=== PATIENT | female | born 1950 | race Two or more races ===

== ENCOUNTER → 2020-09-05 | Outpatient (CLI) | payer MEDICARE, OTHER ==
--- NOTE | 2020-09-05 15:02 | MR ---
EXAMINATION TYPE: MR lumbar spine wo con DATE OF EXAM: 09/05/2020 COMPARISON: 04/22/2018 HISTORY: Low back pain that goes down legs for 2 months, neck pain that goes down arms with numbness for 2-3 years. TECHNIQUE: Multiplanar, multisequence images of the lumbar spine were acquired. L1-L2: Normal disc appearance without desiccation. No herniation, protrusion or disc bulging. No ca nal stenosis is present. Foramina are patent bilaterally. L2-L3: Normal disc appearance without desiccation. No herniation, protrusion or disc bulging. No ca nal stenosis is present. Foramina are patent bilaterally. L3-L4: There is a disc bulge with mild bilateral facet arthropathy without sequelae, unchanged. L4-L5: There is a disc bulge with moderate bilateral facet arthropathy with mild bilateral neural for aminal narrowing, unchanged. L5-S1: There is a disc bulge with moderate bilateral facet arthropathy without sequelae. Lumbar segments are intact. No paraspinal masses are identified. Conus medullaris has a normal appe arance. IMPRESSION: Lower lumbar disc disease and osteoarthritic changes appear similar to the prior examination.
== END | disposition home or self-care (01) ==
LOC: RADMRIMAIN 13:07
PROVIDERS: ATTEND Orthopaedic Surgery
DX: M51.36 Other intervertebral disc degeneration, lumbar region (principal)
CPT/HCPCS: 72148

== ENCOUNTER 2020-12-03 14:35 | Emergency (ER) | payer MEDICARE, OTHER ==
[2020-12-03 15:15] VITALS: BP 133/81; PULSE 86; RESP 18; TEMP 98.6
[2020-12-03] MEDS ORDERED: DIPH,PERTUS(ACELL)TETVAC-LF 0.5 ML VIAL IM ONE (15:24)
--- NOTE | 2020-12-03 16:18 | XR ---
EXAMINATION TYPE: XR finger RT DATE OF EXAM: 12/03/2020 COMPARISON: NONE HISTORY: Pain TECHNIQUE: Three views are submitted. FINDINGS: The osseous structures are intact. The joint spaces are preserved and there is no acute fracture or dislocation. IMPRESSION: 1. No definite acute fracture or dislocation if symptoms persist, follow-up study in 7 to 10 days wo uld be suggested
[2020-12-03 16:27] LABS: Anisocytosis Slight; Basophils % (A) 0 %; Eosinophils # (A) 0.1 k/uL (0-0.7); Eosinophils % (A) 1 %; HCT 41.6 % (34.0-46.0); HGB 14.3 gm/dL (11.4-16.0); Lymphocytes # (A) 1.5 k/uL (1.0-4.8); Lymphocytes % (A) 18 %; MCH 31.7 pg (25.0-35.0); MCHC 34.4 g/dL (31.0-37.0); MCV 92.1 fL (80.0-100.0); Mean Platelet Volume 7.4; Monocytes # (A) 0.7 k/uL (0-1.0); Monocytes % (A) 9 %; Neutrophils # (A) 5.9 k/uL (1.3-7.7); Neutrophils % (A) 71 %; Platelet Count 339 k/uL (150-450); RBC 4.51 m/uL (3.80-5.40); RDW 16.7 % (11.5-15.5); WBC 8.2 k/uL (3.8-10.6)
--- NOTE | 2020-12-03 18:20 | ED ---
Extremity Problem HPI - General Chief complaint: Extremity Problem,Nontraumatic Stated complaint: R thumb injury Time Seen by Provider: 12/03/20 15:12 Source: patient, RN notes reviewed Mode of arrival: ambulatory Limitations: no limitations - History of Present Illness Initial comments: Patient is a 70-year-old female that presents emergency room complaining of right thumb numbness discoloration. She notes that she went to a primary care clinic today and was told to come to ER for evaluation for possible vascular issue or infection. She notes that she cut her right thumb approximately 9-10 days ago healed up and then just last night it became purple in color called the touch and numb. She denied any pain in her thumb. She denied any decreased range of motion. She was otherwise well-appearing 70-year-old female in no apparent distress or pain. She denied any chest pain shortness breath headache nausea vomiting diarrhea constipation fever fatigue chills. - Related Data Allergies Allergy/AdvReac Type Severity Reaction Status Date / Time dexamethasone [From Decadron] Allergy Rash/Hives Verified 12/03/20 15:16 diclofenac [From Cataflam] Allergy Rash/Hives Verified 12/03/20 15:16 etodolac Allergy Rash/Hives Verified 12/03/20 15:16 levofloxacin [From Levaquin] Allergy Anaphylaxis Verified 12/03/20 15:16 morphine Allergy Rash/Hives Verified 12/03/20 15:16 penicillin G Allergy Rash/Hives Verified 12/03/20 15:16 Sulfa (Sulfonamide Allergy Anaphylaxis Verified 12/03/20 15:16 Antibiotics) Review of Systems ROS Statement: Those systems with pertinent positive or pertinent negative responses have been documented in the HPI. ROS Other: All systems not noted in ROS Statement are negative. Past Medical History Past Medical History: GERD/Reflux, Thyroid Disorder Additional Past Medical History / Comment(s): Raynaud's, Basal cell Carcinoma History of Any Multi-Drug Resistant Organisms: None Reported Past Surgical History: Bladder Surgery, Cholecystectomy, Joint Replacement, Ort hopedic Surgery, Tubal Ligation Additional Past Surgical History / Comment(s): Colon, Bunion, Cataract, Past Psychological History: No Psychological Hx Reported Smoking Status: Never smoker Past Alcohol Use History: None Reported Past Drug Use History: None Reported General Exam Limitations: no limitations General appearance: alert, in no apparent distress Head exam: Present: atraumatic, normocephalic, normal inspection Eye exam: Present: normal appearance, PERRL, EOMI. Absent: scleral icterus, conjunctival injection, periorbital swelling Neck exam: Present: normal inspection Respiratory exam: Present: normal lung sounds bilaterally. Absent: respiratory distress, wheezes, rales, rhonchi, stridor Cardiovascular Exam: Present: regular rate, normal rhythm, normal heart sounds. Absent: systolic murmur, diastolic murmur, rubs, gallop, clicks Extremities exam: Present: normal inspection, full ROM, normal capillary refill, other (Right thumb is ecchymotic, dusky, slow capillary refill, numb). Absent: tenderness, pedal edema, joint swelling, calf tenderness Right Vascular: Present: vascular compromise (Right thumb), radial pulse (2+). Absent: normal capillary refill ( right thumb) Neurological exam: Present: alert, oriented X3 Psychiatric exam: Present: normal affect, normal mood Skin exam: Present: warm, dry, intact, normal color. Absent: rash Course Vital Signs 12/03/20 15:05 Temperature 98.6 F Pulse Rate 86 Respiratory 18 Rate Blood Pressure 133/81 O2 Sat by Pulse 99 Oximetry Medical Decision Making - Medical Decision Making 70-year-old female with a right thumb injury discoloration. X-ray of the right thumb, basic labs ordered. X-ray negative for any acute fractures dislocations. Labs unremarkable. Dr. Gaffney was consulted and noted that since her radial pulses good she would more comfortable with a hand specialist inpatient. Mtaeo mckeon was consulted in states that patient can follow-up outpatient with a hand specialist in their practice. Case discussed with Dr. Crespo, patient can discharge home. - Lab Data Result diagrams: 12/03/20 16:18 Lab Results 12/03/20 Range/Units 16:18 WBC 8.2 (3.8-10.6) k/uL RBC 4.51 (3.80-5.40) m/uL Hgb 14.3 (11.4-16.0) gm/dL Hct 41.6 (34.0-46.0) % MCV 92.1 (80.0-100.0) fL MCH 31.7 (25.0-35.0) pg MCHC 34.4 (31.0-37.0) g/dL RDW 16.7 H (11.5-15.5) % Plt Count 339 (150-450) k/uL MPV 7.4 Neutrophils % 71 % Lymphocytes % 18 % Monocytes % 9 % Eosinophils % 1 % Basophils % 0 % Neutrophils # 5.9 (1.3-7.7) k/uL Lymphocytes # 1.5 (1.0-4.8) k/uL Monocytes # 0.7 (0-1.0) k/uL Eosinophils # 0.1 (0-0.7) k/uL Basophils # 0.0 (0-0.2) k/uL Anisocytosis Slight - Radiology Data Radiology results: report reviewed, image reviewed X-ray the right thumb: No definite acute fracture dislocation. Disposition Clinical Impression: Injury of right thumb Disposition: HOME SELF-CARE Condition: Stable Instructions (If sedation given, give patient instructions): Finger Sprain (ED) Additional Instructions: Please return to the Emergency Department if symptoms worsen or any other concerns. Follow-up with orthopedics this week. Is patient prescribed a controlled substance at d/c from ED?: No Referrals: Sowmya Valdez MD [Primary Care Provider] - 1-2 days Naren Alves DO [Doctor of Osteopathic Medicine] - 1-2 days Time of Disposition: 18:20
== END 2020-12-03 18:34 | disposition home or self-care (01) ==
LOC: EC 14:35
DX: S69.91XA Unspecified injury of right wrist, hand and finger(s), initial encounter (principal); Z88.0 Allergy status to penicillin; Z88.8 Allergy status to other drugs, medicaments and biological substances; Z88.1 Allergy status to other antibiotic agents; Z88.2 Allergy status to sulfonamides; Z88.6 Allergy status to analgesic agent; Z88.5 Allergy status to narcotic agent; Z23 Encounter for immunization; W45.8XXA Other foreign body or object entering through skin, initial encounter
CPT/HCPCS: 36415; 85025; 90471; 90715; 99283

== ENCOUNTER → 2021-02-24 | Outpatient (CLI) | payer MEDICARE, OTHER ==
[2021-02-24 09:13] VITALS: BP 163/98; PULSE 82; RESP 18; TEMP 98.1
--- NOTE | 2021-02-24 09:41 | P.PAINCN ---
History of Present Illness - Reason for Consult Consult date: 02/24/21 - History of Present Illness As his is 71 years old female with a chronic history of severe low back pain started 8 months ago, denies any initiating event and she reported that her back pain related to the buttock area bilaterally, pain increased with any activity, denies any motor or sensory deficit she denies any fever or night sweats. No change in bowel movement or urination, though patient complaining of severe neck pain with some radiation to the left shoulder blade area mainly on the left side but and on the right side and also, he reported that the pain in the neck area started more than 9 years ago and she denies any initiating event but the intensity of the pain increased over the last 2 years, the pain in the neck area is constant and increases with any neck movement, she denies any motor or sensory deficits in the upper extremity, she is done with physical therapy with minimal help , he tried chiropractors without any benefit and she is currently doing home exercises with minimal benefit, he tried medication management with Aleve and Tylenol and Excedrin, only minimal benefit and she tried also oral steroids without any long-term benefit Past Medical History Past Medical History: Cancer, GERD/Reflux, Hyperlipidemia, Hypertension, Rheumatoid Arthritis (RA), Thyroid Disorder Additional Past Medical History / Comment(s): Raynaud's, Basal cell Carcinoma History of Any Multi-Drug Resistant Organisms: None Reported Past Surgical History: Bladder Surgery, Bowel Resection, Cholecystectomy, Hysterectomy, Orthopedic Surgery, Tubal Ligation Additional Past Surgical History / Comment(s): Bunionectomy , claudette Cataract, torn meniscus rt knee, bladder suspension x2 Past Anesthesia/Blood Transfusion Reactions: No Reported Reaction Past Psychological History: No Psychological Hx Reported Smoking Status: Never smoker Past Alcohol Use History: None Reported Past Drug Use History: None Reported Additional Drug Use History / Comment(s): cbd oil, cannabis infused gummies Medications and Allergies Home Medications Medication Instructions Recorded Confirmed Type Ascorbic Acid [Vitamin C] 500 mg PO DAILY 02/17/21 02/24/21 History Aspirin [Adult Low Dose Aspirin EC] 81 mg PO DAILY 02/17/21 02/24/21 History Calcium Carbonate [Calcium] 600 mg PO DAILY 02/17/21 02/24/21 History Cannabidiol (Cbd) [Epidiolex] 1 dose PO DAILY PRN 02/17/21 02/24/21 History Cholecalciferol [Vitamin D3 (25 25 mcg PO DAILY 02/17/21 02/24/21 History Mcg = 1000 Iu)] Fluticasone Nasal Elrama [Flonase 1 spray EA NOSTRIL HS 02/17/21 02/24/21 History Nasal Elrama] Folic Acid 1 mg PO HS 02/17/21 02/24/21 History Levothyroxine Sodium [Synthroid] 125 mcg PO DAILY 02/17/21 02/24/21 History Losartan Potassium [Cozaar] 100 mg PO DAILY 02/17/21 02/24/21 History Multivit-Min/FA/Lycopen/Lutein 1 each PO DAILY 02/17/21 02/24/21 History [Centrum Silver Tablet] Pyridoxine [Vitamin B-6] 25 mg PO DAILY 02/17/21 02/24/21 History Rosuvastatin Calcium 5 mg PO MOWEFR 02/17/21 02/24/21 History Rosuvastatin Calcium [Crestor] 2.5 mg PO SUTUTHSA 02/17/21 02/24/21 History metHOTREXate sodium [Methotrexate] 10 tab PO TH 02/17/21 02/24/21 History Allergies Allergy/AdvReac Type Severity Reaction Status Date / Time dexamethasone [From Decadron] Allergy Rash/Hives Verified 02/17/21 12:03 diclofenac [From Cataflam] Allergy Rash/Hives Verified 02/17/21 12:03 etodolac Allergy Rash/Hives Verified 02/17/21 12:03 levofloxacin [From Levaquin] Allergy Anaphylaxis Verified 02/17/21 12:03 morphine Allergy Rash/Hives Verified 02/17/21 12:03 penicillin G Allergy Rash/Hives Verified 02/17/21 12:03 Sulfa (Sulfonamide Allergy Anaphylaxis Verified 02/17/21 12:03 Antibiotics) Physical Exam Vitals: Vital Signs Temp Pulse Resp BP Pulse Ox 02/24/21 09:04 98.1 F 82 18 163/98 98 Physical Examinations : -Constitutiona : Cooperative , not in acute distress . -HEENT : nech : supple , no Lymphadenopathy , normal thyroid size . : eyes : no ptosis , no icterus, no photophobia . - neurologic : Cranial nerve II to XII intact , no focal neurological deffecit . -psychatric : alert , oriented X 3 , appropriate affect , intact judgment and insight . -Lymphatic : no Lymphadenopathy . - musculoskeltal : Cervical Spine motor stregnth in the deltoid and biceps, normal right side , normal Left side motor stregnth biceps and the wrist extensors normal right side ,normal left side . motor stregnth in the triceps muscle . normal Right side , normal Left side deep tendon reflexes normal at the biceps , normal at Brachioradialis , normal at triceps. cervical facet loading test: Positive Bilaterally Spurling test= positive Right , positive left. Neck distraction test= positive Right , positive left. Abhi sign= positive right, positive left . Lumber spine moter stegnth lower extremities ,thigh and legs 5/5 Right side , 5/5 Left side deep tendon reflexes : normal Knee Jerk , normal ankle Jerk lumber facet Loading Test =positive Right , positive Left Range of motion of the lumbar spine Flexion 30 degrees, extension 10 degrees strait leg raising test = positive at degree Fabere test= positive Right , and positive LT . Sever tenderness over the Sacroiliac joint on the Right , and Left sides sever Tenderness over the trochanteric bursa bilaterally Results Comments: MRI of the cervical spine multilevel cervical facet arthropathy at C3 4 C4 5 C5 6 C6 7 and there is cervical spinal stenosis at C6 7 and C5 MRI lumbar spine multilevel lumbar bulging disc disease and multilevel lumbar facet arthropathy Assessment and Plan Plan: Assessment and plan=1-lumbar spondylosis with lumbar facet arthropathy without myelopathy. 2-Lumbar degenerative disc disease. 3-cervical spondylosis with cervical facet arthropathy 4-cervical spinal stenosis. currentely most of her pain in the lumbar area currently for this reason we will schedule patient to have diagnostic medial branch block lumbar area at end L4-5 and L5-S1 levels 2 and possible RFA Time with Patient: Greater than 30 PQRS Measure Charge Sheet Measure #130: Documentation of Current Meds in Medical Chart: Patient's medications documented in chart Measure #226: Tobacco Use: Screen & Cessation Intervention: Pt not a tobacco user Measure #111: Pneumonia Vaccination: Pneumococcal vaccine administered or previously received Measure #47: Advance Care Plan: Advance care planning discussed & documented, pt chose/unable to give Measure #412: Opioid Treatment Agreement: No documentation of signed opioid treatment agreement Measure #408: Opioid Therapy Follow-up Evaluation: Patient had NO f/u eval minimum every 3 months during opioid therapy Measure #317: Preventitive Care & Scrn High Bld Press & F/U: Pre-hypertensive or hypertensive BP documented, pt will f/u with PCP Measure #128: Body Mass Index (BMI) Screening & Follow-up: BMI documented within normal parameters Measure #131: Pain Assessment & Follow-up: Pain positive & plan documented, Follow-up scheduled Measure #431: Unhealthy Alcohol Use Preventative Care & Scrn: Patient identified as unhealthy alcohol user; counseling given Mode of Arrival: Ambulatory - Pain Location Right Lower Back Non-Pharmacological Interventions: Heat, Inactivity, Physical Therapy, Position/Reposition, Stretching Pharmacological Interventions: Medication, PRN Medication Left Shoulder Non-Pharmacological Interventions: Chiropractic Treatment, Heat, Inactivity, Physical Therapy, Stretching Pharmacological Interventions: Medication, PRN Medication PQRS Narrative: Blood Pressure 163/98 Pain Intensity [Left Shoulder] 10 Pain Intensity [Right Lower 10 Back] Scale Used Numeric (1 - 10) Hx Alcohol Use (MH) No Home Medications: Ambulatory Orders Ascorbic Acid [Vitamin C] 500 mg PO DAILY 02/17/21 Aspirin [Adult Low Dose Aspirin EC] 81 mg PO DAILY 02/17/21 Calcium Carbonate [Calcium] 600 mg PO DAILY 02/17/21 Cannabidiol (Cbd) [Epidiolex] 1 dose PO DAILY PRN 02/17/21 Cholecalciferol [Vitamin D3 (25 Mcg = 1000 Iu)] 25 mcg PO DAILY 02/17/21 Fluticasone Nasal Elrama [Flonase Nasal Elrama] 1 spray EA NOSTRIL HS 02/17/21 Folic Acid 1 mg PO HS 02/17/21 Levothyroxine Sodium [Synthroid] 125 mcg PO DAILY 02/17/21 Losartan Potassium [Cozaar] 100 mg PO DAILY 02/17/21 Multivit-Min/FA/Lycopen/Lutein [Centrum Silver Tablet] 1 each PO DAILY 02/17/21 Pyridoxine [Vitamin B-6] 25 mg PO DAILY 02/17/21 Rosuvastatin Calcium 5 mg PO MOWEFR 02/17/21 Rosuvastatin Calcium [Crestor] 2.5 mg PO SUTUTHSA 02/17/21 metHOTREXate sodium [Methotrexate] 10 tab PO TH 02/17/21
== END | disposition home or self-care (01) ==
LOC: PNWHC3 08:55
PROVIDERS: ATTEND Specialist
DX: M47.896 Other spondylosis, lumbar region (principal); M51.36 Other intervertebral disc degeneration, lumbar region; M47.892 Other spondylosis, cervical region; M48.02 Spinal stenosis, cervical region
CPT/HCPCS: 99211

== ENCOUNTER 2021-04-04 12:38 | Day surgery (SDC) | payer MEDICARE, OTHER ==
[2021-03-31 15:03] VITALS: BMI 25.2
[~2021-04-04 12:38] MED LIST: LACTATED RINGERS 1,000 ML IV SCH
[2021-04-04 13:03] VITALS: TEMP 96.7
[2021-04-04 13:13] LABS: Glucose,Whole Blood 103 mg/dL (75-99)
[2021-04-04] MEDS ORDERED: fentaNYL (PF) 50 MCG/ML 2 ML AMP ONE (13:38)
[2021-04-04] MEDS ORDERED: methylPREDNISolone ACETATE 40 MG/ML 1 ML VIAL ONE (13:38)
[2021-04-04] MEDS ORDERED: ROPIVACAINE 5MG/ML 20ML VIAL ONE (13:38)
[2021-04-04] MEDS ORDERED: MIDAZOLAM 2 MG/2 ML VIAL ONE (13:38)
--- NOTE | 2021-04-04 13:58 | P.PCN ---
Date of Procedure: 04/04/21 Procedure(s) Performed: PREOPERATIVE DIAGNOSIS : 1- Lumbar spondylosis with Facet Arthropathy without myelopathy . 2- Lumber degenerative disc disease POSTOPERATIVE DIAGNOSIS: 1- Lumbar spondylosis with Facet Arthropathy without myelopathy . 2- Lumber degenerative disc disease PROCEDURE: Diagnostic bilateral L3 , L4 , and L5 medial branch block under fluoroscopy guidance(fluoroscopy images available in the radiology Department ) ( To target the facet joint between Bilateral L4-5 , and L5-S1 ) ANESTHESIA:, Monitored anesthesia care as per anesthesia department.. EBL: Minimal COMPLICATION: None PROCEDURE INDICATION: Chronic low back pain secondary to Facet arthropathy unresponsive to conservative treatment. PROCEDURE DESCRIPTION: the patient was seen and identified in the preop holding area , risks and benefits and possible complications of the procedure and alternative were discussed with the patient, and the patient agreed to proceed with the procedure and signed the consent and vital signs monitored during the procedure and fluoroscopy was used to maximize the benefit and accuracy of the needle placement, and sedation was given to decrease patient anxiety, patient was taken to the procedure room and placed in prone position vital signs monitored in the back prepped with chlorhexidine X3 then under strict sterile technique using a right oblique fluoroscopy ,the junction of the transverse process and the superior articulating process of the right L3 , L4 , and L5 vertebra which corresponding to the fluoroscopy image of the eye of the Memo dog on the block side for the medial branches and subsequently , after local infiltration of skin and subcu tissuies with Ropivacaine 0.5 % , one mL at each level ,then 22-gauge Quincke-type needles , 3 needle was used , each one of them placed at the junction of the base of the transverse process and the superior articular process at the appropriate level, and the needle was advanced until the periosteum contacted, needle placement confirmed with AP oblique and lateral view and after appropriate needle placement confirmed, and after negative aspiration for heme and CSF and there was no paresthesia 1-1/2 mL of Ropivacaine 0.5% mixed with 20 mg Depo-Medrol , then half mL injected at each level after negative aspiration the needle subsequently removed and the same procedure repeated for the left side at left side at L3 , L4 and L5 levels. At the end of the procedure and the needles removed and a bandage applied after the skin was cleaned the cleaning solution patient taken to recovery room in stable condition and monitors in the recovery room for 20-30 minutes and discharged home in stable condition after discharge criteria met and patient will follow up with the pain clinic in 2-4 weeks
[2021-04-04] MEDS ORDERED: IV FLUID CONTINUATION 1,000 ML IV ONE (14:04)
[2021-04-04 14:09] VITALS: RESP 16
--- NOTE | 2021-04-04 14:12 | FL ---
EXAMINATION TYPE: FL guided pain mgmt statistic DATE OF EXAM: 04/04/2021 HISTORY: Fluoroscopy time 8 seconds of fluoroscopy provided. IMPRESSION: 1. Fluoroscopy time.
[2021-04-04 14:27] VITALS: BP 113/70; PULSE 70
== END 2021-04-04 14:57 | disposition home or self-care (01) ==
LOC: ORPAIN 12:38
PROVIDERS: ATTEND Specialist
DX: M47.816 Spondylosis without myelopathy or radiculopathy, lumbar region (principal); M54.16 Radiculopathy, lumbar region
CPT/HCPCS: 64493; 64494; J2250; J1030; J3010; J2795

== ENCOUNTER → 2021-04-25 | Day surgery (SDC) | payer MEDICARE, OTHER ==
[2021-04-23 14:22] VITALS: BMI 25.4
[~2021-04-25] MED LIST changes: +IV FLUID CONTINUATION 1,000 ML IV ONE; +MIDAZOLAM 2 MG/2 ML VIAL ONE; +ROPIVACAINE 5MG/ML 20ML VIAL ONE; +fentaNYL (PF) 50 MCG/ML 2 ML AMP ONE; +methylPREDNISolone ACETATE 40 MG/ML 1 ML VIAL ONE
[2021-04-25 13:51] VITALS: TEMP 98
--- NOTE | 2021-04-25 14:49 | P.PCN ---
Date of Procedure: 04/25/21 Procedure(s) Performed: PREOPERATIVE DIAGNOSIS : 1- Lumbar spondylosis with Facet Arthropathy without myelopathy . 2- Lumber degenerative disc disease POSTOPERATIVE DIAGNOSIS: 1- Lumbar spondylosis with Facet Arthropathy without myelopathy . 2- Lumber degenerative disc disease PROCEDURE: Diagnostic bilateral L3 , L4 , and L5 medial branch block under fluoroscopy guidance(fluoroscopy images available in the radiology Department ) ( To target the facet joint between Bilateral L4-5 , and L5-S1 ) # 2nd ANESTHESIA:, Monitored anesthesia care as per anesthesia department.. EBL: Minimal COMPLICATION: None PROCEDURE INDICATION: Chronic low back pain secondary to Facet arthropathy unresponsive to conservative treatment. PROCEDURE DESCRIPTION: the patient was seen and identified in the preop holding area , risks and benefits and possible complications of the procedure and alternative were discussed with the patient, and the patient agreed to proceed with the procedure and signed the consent and vital signs monitored during the procedure and fluoroscopy was used to maximize the benefit and accuracy of the needle placement, and sedation was given to decrease patient anxiety, patient was taken to the procedure room and placed in prone position vital signs monitored in the back prepped with chlorhexidine X3 then under strict sterile technique using a right oblique fluoroscopy ,the junction of the transverse process and the superior articulating process of the right L3 , L4 , and L5 vertebra which corresponding to the fluoroscopy image of the eye of the Memo dog on the block side for the medial branches and subsequently , after local infiltration of skin and subcu tissuies with Ropivacaine 0.5 % , one mL at each level ,then 22-gauge Quincke-type needles , 3 needle was used , each one of them placed at the junction of the base of the transverse process and the superior articular process at the appropriate level, and the needle was advanced until the periosteum contacted, needle placement confirmed with AP oblique and lateral view and after appropriate needle placement confirmed, and after negative aspiration for heme and CSF and there was no paresthesia 1-1/2 mL of Ropivacaine 0.5% mixed with 20 mg Depo-Medrol , then half mL injected at each level after negative aspiration the needle subsequently removed and the same procedure repeated for the left side at left side at L3 , L4 and L5 levels. At the end of the procedure and the needles removed and a bandage applied after the skin was cleaned the cleaning solution patient taken to recovery room in stable condition and monitors in the recovery room for 20-30 minutes and discharged home in stable condition after discharge criteria met and patient will follow up with the pain clinic in next week for evaluation, and possibly patient will be scheduled to have RFA if she had a good result, she'll want to move to [place] by the end of April 2021, for this reason we will try to schedule the radiofrequency before the end of the month, if she had good result with the diagnostic medial branch block
[2021-04-25 15:07] VITALS: BP 119/68; PULSE 76; RESP 16
--- NOTE | 2021-04-25 15:21 | FL ---
Fluoroscopy HISTORY: Pain 8 seconds fluoroscopy time supplied to the referring clinician. 4 intraoperative C-arm images docume nt the procedure. See dictated report from anesthesia.
== END | disposition home or self-care (01) ==
LOC: ORPAIN 13:23
PROVIDERS: ATTEND Specialist
DX: M47.816 Spondylosis without myelopathy or radiculopathy, lumbar region (principal)
CPT/HCPCS: 64493; 64494; J2250; J1030; J3010; J2795

== ENCOUNTER → 2021-04-28 | Outpatient (CLI) | payer MEDICARE, OTHER ==
[2021-04-28 09:52] VITALS: BP 134/80; PULSE 80; RESP 18; TEMP 98.1
--- NOTE | 2021-04-28 10:01 | P.PN ---
Subjective Progress Note Date: 04/28/21 Principal diagnosis: A 71 yr old female with at side presents with a history of severe and chronic low back pain secondary to lumbar degenerative disc diseases and lumbar spondylosis with facet arthropathy. Patient underwent a second facet block of the medial branches at the L4-L5 and L5-S1 and admits to approximately 90% pain relief for 2 weeks . Patient states that the pain started to return after that point and escalates to a 4 out of 10 in intensity dull and achy in the lower lumbar spine which is provoked with activity. Pain radiates to the right hip and 8 shooting stabbing sensation more so than the left. Pain is alleviated with medications, topicals, injections, heat, physical therapy, chiropractic treatments, home exercise regimen and repositioning. Interventional pain procedures completed include bilateral L4-L5, L5-S1 facet block medial branches Patient denies any side effects of the medication(s), denies excessive drowsiness or sleepiness, denies suicidal ideation and reports that the current pain medication is helping to control the pain and improve activities of daily living. Patient denies any motor or sensory deficits. Patient denies any fever or night sweats, denies any change in the bowel movements or urination. Physical Examination: -Constitutional: Cooperative. Not in acute distress . -HEENT: Neck is supple. No lymphadenopathy. No thyromegaly. Normal thyroid size. Eyes: No ptosis , no icterus, no photophobia. ENT: No auditory deficits. Normal oropharynx. No Thrush. - Respiratory: Chest clear to auscultations bilaterally. No wheezing. No rhonchi. - Cardiovascular: Regular rate and rhythm. S1 / S2 , no S3 , no S4. - Gastrointestinal: Abdomen soft no tenderness. Bowel sounds positive in all four quadrants. No organomegaly. - Genitourinary: Deferred. - Neurologic: Cranial nerve II to XII intact. No focal neurological deficits. - Psychatric: Alert & oriented x 3. Matching mood & appropriate affect. Judgment and insight intact. - Lymphatic: No Lymphadenopathy. - Musculoskeletal: Cervical spine: Muscle bulk/ tone/ strength in the bilateral upper extremities normal. Facet loading test cervical area positive. Lumbar spine: Motor bulk/ tone/ strength lower extremities , thigh and legs : 5/5 Deep tendon reflexes : Normal Knee Jerk. Normal Ankle Jerk . Moderate vertebral body tenderness over the L4 and L5 Lumbar Facet Loading Test positive over L4-L5, L5-S1 with deep palpation Straight Leg Raise: positive at 30 degree right side/ left side Nishi test: positive right side / left side Range of motion: Range of motion in flexion of the lumbar spine 60 degrees Range of motion: Extension of the lumbar spine <20 degrees Severe tenderness over the Sacroiliac joint: right side / left side Assessment and plan: Chronic low back pain secondary to lumbar degenerative disc disease , lumbar spondylosis with facet arthropathy without myelopathy Recommendation of the bilateral RFA of the L4-L5 and L5-S1 Risks benefits of the procedure discussed and patient verbalized understanding Denies aspirin or anticoagulant use. Stop prednisone use 5 days prior to procedure All patient questions answered MAPS reviewed and it was appropriate. I have spent 31 minutes on patient care today. Dr Lyons was available by phone for the evaluation of this patient. The time was used to review the medical records including relevant urine studies and Prescription history (MAPs), review of the available imaging, evaluation and examination of the patient, coordination of care with the medical staff and if applicable referring physicians, as well as creation of the medical record Objective - Vital Signs Vital signs: Vital Signs Temp 98.1 F 04/28/21 09:44 Pulse 80 04/28/21 09:44 Resp 18 04/28/21 09:44 BP 134/80 04/28/21 09:44 Pulse Ox 96 04/28/21 09:44 Intake & Output 04/27/21 04/28/21 04/28/21 18:59 06:59 18:59 Weight 63.503 kg PQRS Measure Charge Sheet Mode of Arrival: Ambulatory - Pain Location Lower Back Non-Pharmacological Interventions: Heat, Home Exercise, Inactivity, Physical Therapy, Stretching Pharmacological Interventions: Block, Medication, Topical Medication PQRS Narrative: Blood Pressure 134/80 Pain Intensity [Lower Back] 2 Hx Alcohol Use (MH) No Home Medications: Ambulatory Orders Ascorbic Acid [Vitamin C] 500 mg PO DAILY 02/17/21 Aspirin [Adult Low Dose Aspirin EC] 81 mg PO DAILY 02/17/21 Cholecalciferol [Vitamin D3 (25 Mcg = 1000 Iu)] 50 mcg PO DAILY 02/17/21 Levothyroxine Sodium [Synthroid] 115 mcg PO DAILY 02/17/21 Losartan Potassium [Cozaar] 100 mg PO DAILY 02/17/21 Multivit-Min/FA/Lycopen/Lutein [Centrum Silver Tablet] 1 each PO DAILY 02/17/21 Pyridoxine [Vitamin B-6] 50 mg PO DAILY 02/17/21 Rosuvastatin Calcium 5 mg PO MOWEFR 02/17/21 Rosuvastatin Calcium [Crestor] 2.5 mg PO SUTUTHSA 02/17/21 Calcium Carbonate/Vitamin D3 [Calcium 600 mg-D3 10 Mcg (400 Iu)] 1 each PO DAILY 03/31/21 DULoxetine HCL [Cymbalta] 60 mg PO DAILY 03/31/21 Fiber Capsules 2 cap PO DAILY 03/31/21 predniSONE 5 mg PO DAILY 03/31/21 Actemra (Unknown Dose) 112 dose IVPB Q30D 04/23/21 amLODIPine BESYLATE 5 mg PO DAILY 04/23/21
== END | disposition home or self-care (01) ==
LOC: PNWHC3 09:25
PROVIDERS: ATTEND Anesthesiology
DX: M47.896 Other spondylosis, lumbar region (principal); M51.36 Other intervertebral disc degeneration, lumbar region
CPT/HCPCS: 99211